=== PATIENT | male | born 1975 | race Caucasian/White ===

== ENCOUNTER 2024-02-17 14:29 | Emergency (ER) | payer OTHER, SELFPAY ==
[2024-02-17 14:34] VITALS: BP 159/87; PULSE 88; RESP 18; TEMP 36.6; O2SAT 96; BMI 49.1
--- NOTE | 2024-02-17 15:08 | ED_ITS ---
HPI - Extremity Problem General: Chief complaint: Extremity Problem,Nontraumatic Stated complaint: has lymphedema, wants legs wrapped Time Seen by Provider: 02/17/24 14:56 Source: patient Mode of arrival: ambulatory Limitations: no limitations History of Present Illness: 49-year-old male has history of lymphede ma states he typically gets his legs wrapped and states that he needs to have them wrapped currently. He has no acute complaints states he had some weeping from his legs but states they are at her baseline denies any pain or redness or fever Associated symptoms: Deny chest pain, fever(s) or rash Review of Systems Const: Denies: fever(s), chills, body aches or change in appetite ENMT: Denies: throat pain or dental pain Card: Denies: chest pain Resp: Denies: dyspnea GI: Denies: abdominal pain, nausea, vomiting or diarrhea Musc: Reports: extremity swelling; Denies: neck pain or back pain Skin/Breast: Denies: rash Neuro: Denies: headache(s) Physical Exam Const: COMMON NORMALS: no acute distress, patient oriented x3 and healthy appearing HENMT: COMMON NORMALS: normocephalic and atraumatic HEAD & SCALP: normocephalic and atraumatic Neck/C-Spine: COMMON NORMALS: full ROM and supple Chest: COMMONS NORMALS: normal inspection of the chest Resp: COMMON NORMALS: normal respiratory effort Extremity: NARRATIVE EXTREMITY EXAM: Lower extremity edema noted Neuro: COMMON NORMALS: patient oriented x3, moves all extremities and no focal motor deficits Psych: COMMON NORMALS: mental status grossly normal, Normal thought process present and cooperative THOUGHT PROCESS: Normal thought process present Skin: COMMON NORMALS: no rashes or lesions noted and no wounds GENERAL SKIN EXAM: no rashes or lesions noted Course Vital Signs: Vital signs: Vital Signs Temperature 97.8 F 02/17/24 14:34 Pulse Rate 88 02/17/24 14:34 Respiratory Rate 18 02/17/24 14:34 Blood Pressure 159/87 02/17/24 14:34 Pulse Oximetry 96 02/17/24 14:34 Oxygen Delivery Me thod Room Air 02/17/24 14:34 MDM - Extremity (Nontraumatic) Medical Decision Making Did call OT to see if they would do lymphedema wrapping as patient wants they are not in-house at this time did offer to Remy wrap his legs he refused will discharge No radiology studies performed this visit Discharge Plan Discharge Patient Disposition: Home Clinical Impression: Dependent lymphedema Condition: Stable Discharge Orders: Discharge ED (Routine); Ordered 02/17/24 Ordered By: Doris Becker Discharge Diet: Advance as tolerated Discharge Activity: Resume usual activity Patient Instructions: Lymphedema (ED) Coding Level of Care Code ED Processing [employer] Supervisor for Angelica Montoya
== END 2024-02-17 15:13 | disposition home or self-care (01) ==
PROVIDERS: Emergency Provider Emergency Medicine
DX: I89.0 Lymphedema, not elsewhere classified (principal)
CPT/HCPCS: 99281